=== PATIENT | female | born 1975 | race African-American/Black ===

== ENCOUNTER 2020-05-08 12:34 | Emergency (ER) | payer MEDICAID ==
[~2020-05-08] VITALS: Ht 170.2 cm; Wt 59.0 kg
[2020-05-08] MEDS ORDERED: ACETAMINOPHEN 325MG TABLET PO ONE (13:15)
[2020-05-08] MEDS ORDERED: MORPHINE SULFATE 4 MG/ML CPJ (NOT FOR IM USE) IV ONE (13:30)
[2020-05-08 14:55] LABS: BASOPHILS % 0.9 % (0.0-2.0); EOSINOPHILS % 1.1 % (0.0-5.0); HEMATOCRIT. 41.6 % (36.0-48.0); HEMOGLOBIN. 13.8 g/dL (12.0-16.0); LYMPHOCYTES % 12.6 % (20.0-50.0); MEAN CORPUSCULAR HEMOGLOBIN 33.8 pg (28.0-32.0); MEAN CORPUSCULAR VOLUME 101.6 fL (81.0-99.0); MONOCYTES % 5.1 % (2.0-8.0); NEUTROPHILS % 80.3 % (40.0-76.0); PLATELET 326 x1000/uL (130-400); RED BLOOD CELL COUNT 4.09 mill/uL (4.2-5.4); RED CELL DISTRIBUTION WIDTH 12.4 % (11.6-14.6)
[2020-05-08 15:10] LABS: CHLORIDE 103 mEq/L (98-107)
[2020-05-08] MEDS ORDERED: KETOROLAC 60MG/2ML VIAL IM ONE (15:45)
[2020-05-08 16:11] VITALS: BP 122/70
== END 2020-05-08 16:13 | disposition home or self-care (01) ==
LOC: ER 13:07
DX: S76.012A Strain of muscle, fascia and tendon of left hip, initial encounter (principal); S83.92XA Sprain of unspecified site of left knee, initial encounter; V23.4XXA Motorcycle driver injured in collision with car, pick-up truck or van in traffic accident, initial encounter; Y93.89 Activity, other specified; Y92.89 Other specified places as the place of occurrence of the external cause; Y99.8 Other external cause status
CPT/HCPCS: 36415; 71045; 72125; 72170; 73552; 73560; 80048; 85025; 93005; 96372; 96374; 99285; J1885; J2270